=== PATIENT | female | born 1950 | race Caucasian/White ===

== ENCOUNTER 2017-08-12 08:18 | Emergency (ER) | payer OTHER ==
[~2017-08-12] VITALS: Ht 160 cm; Wt 63.5 kg
[~2017-08-12 08:18] MED LIST: ASA81 MG; RAMIPRIL2.5 MG; TENORMIN25 MG
[2017-08-12] MEDS ORDERED: TOPROL XL25 M1 (08:33)
[2017-08-12] MEDS ORDERED: XANAX0.25 MG PO (12:21)
== END 2017-08-12 12:40 | disposition home or self-care (01) ==
LOC: ER 08:18
DX: I10 Essential (primary) hypertension (principal); F41.8 Other specified anxiety disorders

== ENCOUNTER 2022-11-15 08:47 | Outpatient (CLI) | payer OTHER ==
[~2022-11-15 08:47] MED LIST changes: +TOPROL XL25 M1; +XANAX0.25 MG PO
== END 2022-11-15 08:54 | disposition home or self-care (01) ==
LOC: RX STUDY 08:47
PROVIDERS: ATTEND Internal Medicine Gastroenterology
DX: R10.13 Epigastric pain (principal); R13.0 Aphagia